=== PATIENT | male | born 1975 | race Caucasian/White ===

== ENCOUNTER → 2021-03-16 | Outpatient (CLI) | payer BC ==
[~2021-03-16] MED LIST: BENADRYL25 MG PO; MEDROL DOSEPAK 24 MG PO
== END ==
LOC: HEART 5 07:22
DX: R07.89 Other chest pain (principal); I08.2 Rheumatic disorders of both aortic and tricuspid valves
CPT/HCPCS: 93306

== ENCOUNTER → 2021-11-27 | Outpatient (CLI) | payer BC | LOC: KOH-I 14:15 | DX: M62.830 Muscle spasm of back (principal); M47.816 Spondylosis without myelopathy or radiculopathy, lumbar region; M47.814 Spondylosis without myelopathy or radiculopathy, thoracic region | CPT/HCPCS: 72070; 72100 ==